=== PATIENT | female | born 2005 | race Two or more races ===

== ENCOUNTER 2024-01-13 12:05 | Emergency (ER) | payer MEDICAID ==
[~2024-01-13] VITALS: Ht 165.1 cm; Wt 61.4 kg
[~2024-01-13 12:05] MED LIST: FERR325T27 PO; LEVO750T68 PO
[2024-01-13 12:17] VITALS: TEMP 98.6
[2024-01-13 13:10] LABS: APPEARANCE,URINE CLEAR (CLEAR); BILIRUBIN,URINE NEGATIVE (NEGATIVE); COLOR,URINE COLORLESS (YELLOW); GLUCOSE, URINE (UA) NEGATIVE (NEGATIVE); KETONES,URINE NEGATIVE (NEGATIVE); LEUKOCYTE ESTERASE ,URINE NEGATIVE (NEGATIVE); NITRATE,URINE NEGATIVE (NEGATIVE); OCCULT BLOOD,URINE SMALL (NEGATIVE); PROTEIN,URINE NEGATIVE (NEGATIVE); SPECIFIC GRAVITIY, URINE 1.005 (1.003-1.030); UROBILINOGEN,URINE <=1.0 mg/dL (<=1.0)
[2024-01-13 13:13] LABS: BACTERIA,URINE None Seen /HPF (None Seen); WBC,URINE None Seen /HPF (0-5)
[2024-01-13 15:53] LABS: BASOPHILS % (AUTO) 0.4 % (0.0-2.0); EOSINOPHILS % (AUTO) 1.3 % (1.0-6.0); HEMATOCRIT 37.3 % (36-46); HEMOGLOBIN 12.2 g/dL (12.0-16.0); LYMPHOCYTES # (AUTO) 2.5 K/uL (1.0-4.8); LYMPHOCYTES % (AUTO) 30.2 % (22.0-44.0); MEAN CORPUSCULAR HEMOGLOBIN 26.8 pg (26.0-34.0); MEAN CORPUSCULAR HGB CONC 32.7 G/dL (31.0-37.0); MEAN CORPUSCULAR VOLUME 82 fL (80-100); MONOCYTES # (AUTO) 0.5 K/uL (0.1-1.0); MONOCYTES % (AUTO) 5.8 % (2.0-9.0); NEUTROPHILS # (AUTO) 5.2 K/uL (1.8-7.7); NEUTROPHILS % (AUTO) 62.3 % (40.0-70.0); PLATELET COUNT (AUTO) 327 K/uL (150-450); RED BLOOD CELL COUNT(AUTO) 4.54 MIL/uL (4.00-5.20); RED CELL DISTRIBUTION WIDTH 19.1 % (11.5-14.5); WHITE BLOOD COUNT (AUTO) 8.3 K/uL (4.5-11.0)
[2024-01-13 16:03] LABS: ANION GAP 5 mmol/L (8-16); CALCIUM, TOTAL 8.9 mg/dL (8.8-10.5); CARBON DIOXIDE 33 mmol/L (22-29); CHLORIDE 101 mmol/L (98-107); CREATININE 0.74 mg/dL (0.60-1.30); GLOMERULAR FILTR. RATE CALC > 60 mL/min (>60); GLUCOSE,RANDOM 86 mg/dL (70-110); POTASSIUM 3.4 mmol/L (3.5-5.1); SODIUM SERUM 139 mmol/L (136-145); UREA NITROGEN, BLOOD 7 mg/dL (7-18)
[2024-01-13 16:04] LABS: LIPASE 30 U/L (16-77)
[2024-01-13] MEDS: KETOROLAC TROMETHAMINE 30 MG/ML VIAL IVP ONE (16:06)
[2024-01-13] MEDS: ONDANSETRON HCL 4 MG/2 ML VIAL IVP ONE (16:06)
[2024-01-13] MEDS: SODIUM CHLORIDE 0.9% 2,000 ML IV ONE (16:37)
[2024-01-13] MEDS ORDERED: IBUP-1554 PO (17:08)
[2024-01-13] MEDS ORDERED: ACET-66 PO (17:08)
[2024-01-13 17:33] VITALS: BP 108/62; PULSE 71; RESP 19
== END 2024-01-13 17:41 | disposition home or self-care (01) ==
LOC: EMS 12:05
DX: R10.9 Unspecified abdominal pain (principal); L60.4 Beau's lines; F17.210 Nicotine dependence, cigarettes, uncomplicated; F12.90 Cannabis use, unspecified, uncomplicated
CPT/HCPCS: 99285; 74176; 96374; 96361; 96375; 80048; 81001; 83690; 84703; 85025; 36415; J1885; J2405; J7030